=== PATIENT | female | born 1995 | race Caucasian/White ===

== ENCOUNTER 2018-08-29 14:43 | Emergency (ER) | payer SELFPAY ==
[~2018-08-29] VITALS: Ht 160 cm; Wt 73.5 kg
[2018-08-29 17:50] VITALS: BP 153/93
== END 2018-08-29 17:50 | disposition home or self-care (01) ==
LOC: ED 14:43
DX: L02.31 Cutaneous abscess of buttock (principal)
CPT/HCPCS: J2001